=== PATIENT | female | born 1970 | race Two or more races ===

== ENCOUNTER 2018-11-01 07:26 | Emergency (ER) | payer SELFPAY ==
[~2018-11-01] VITALS: Ht 157.5 cm; Wt 64.4 kg
--- NOTE | 2018-11-01 07:48 | NUR ---
[id number]. 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 BS 85. PATIENT AWAKE, ALERT AND ORIENTED TO SELF. NO ACUTE DISTRESS. DENIES ANY PAIN OR DISCOMFORT. NOTED WITH 2 WOUNDS ON LLE. AWAITING
--- NOTE | 2018-11-01 07:55 | NUR ---
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
--- NOTE | 2018-11-01 07:56 | NUR ---
DR CHAVES AT BEDSIDE
[2018-11-01] MEDS ORDERED: IV NS 0.9% 1,000 ML BAG IV ONE (08:00)
[2018-11-01 08:07] LABS: BASOPHILS % (AUTO) 0.5 % (0.0-2.0); EOSINOPHILS % (AUTO) 4.1 % (0.0-6.0); HEMATOCRIT 39 % (33-45); HEMOGLOBIN 13.1 g/dL (11.5-14.8); LYMPHOCYTES # (AUTO) 1.6 /CMM (0.8-4.8); LYMPHOCYTES % (AUTO) 30.7 % (20.0-44.0); MEAN CORPUSCULAR HGB CONC 34 g/dl (31.0-36.0); MEAN CORPUSCULAR VOLUME 92 fL (82-100); MONOCYTES # (AUTO) 0.4 /CMM (0.1-1.30); MONOCYTES % (AUTO) 8.5 % (2.0-12.0); NEUTROPHILS # (AUTO) 2.9 /CMM (1.8-8.9); NEUTROPHILS % (AUTO) 56.2 % (43.0-81.0); PLATELET COUNT (AUTO) 328 /CMM (150-450); RED BLOOD CELL COUNT(AUTO) 4.24 MIL/uL (4.0-5.2); WHITE BLOOD COUNT (AUTO) 5.1 K/uL (4.3-11.0)
[2018-11-01 08:14] LABS: CALCIUM, SERUM 8.5 mg/dL (8.5-10.1); CREATININE 0.6 mg/dL (0.6-1.3); POTASSIUM 3.6 mmol/L (3.5-5.1)
--- NOTE | 2018-11-01 10:22 | NUR ---
HOMELESS STATUS VERIFIED WITH PATIENT. PATIENT DOES NOT WANT TO REFERRED TO PLACES. PROVIDED WITH RESOURCES AND ADDITIONAL CLOTHING PATIENT IS REQUESTING TO HAVE ANOTHER PAIR OF PANTS AND JACKET. TAP CARD REQUESTED FROM SERVICE REPRESENTATIVE
--- NOTE | 2018-11-01 10:32 | NUR ---
IV removed. Catheter intact and site benign. Pressure and 4x4 applied to site. No bleeding noted.Patient discharged to home in stable condition. Written and verbal after care instructions given. Patient verbalizes understanding of instruction. meal and clothing provided to patient. Tap card given to patient. patient verbalized she will ride the bus and go the group home at [place].
[2018-11-01 10:34] VITALS: BP 128/85
== END 2018-11-01 10:36 | disposition home or self-care (01) ==
LOC: ER 07:26
DX: L97.829 Non-pressure chronic ulcer of other part of left lower leg with unspecified severity (principal); Z59.0 Homelessness
CPT/HCPCS: 36415; 73590; 80048; 83605; 85025; 85652; 86140; 87040 ×2; 99284; A6403; J7030